=== PATIENT | female | born 1990 | race African-American/Black ===

== ENCOUNTER 2025-03-09 11:03 | Emergency (ER) | payer OTHER ==
[~2025-03-09] VITALS: Ht 170.2 cm; Wt 81.2 kg
[2025-03-09] MEDS ORDERED: PRENTAB45 PO (11:12)
[2025-03-09 12:02] LABS: BASO # 0.0 10^3/uL (0.0-0.2); BASO % 0.4 % (0.0-1.0); EOS # 0.2 10^3/uL (0.0-0.5); EOS % 2.8 % (0.0-3.0); LYMPH # 1.8 10^3/uL (1.5-5.0); LYMPH % 26.5 % (24.0-44.0); MONO # 0.4 10^3/uL (0.0-0.8); MONO % 6.1 % (2.0-8.0); NEUTROPHILS # 4.4 10^3/uL (1.5-8.5); NEUTROPHILS % 63.9 % (36.0-66.0); PLATELET COUNT, AUTOMATED 396 10^3/uL (150-450)
[2025-03-09 12:33] LABS: CALCIUM LEVEL 8.5 MG/DL (8.5-10.1); CARBON DIOXIDE LEVEL 26 MMOL/L (20-31); CHLORIDE LEVEL 106 MMOL/L (98-107); CREATININE FOR GFR 0.63 MG/DL (0.55-1.30); GLOMERULAR FILTRATION RATE > 90.0 (>60); POTASSIUM SERUM 3.9 MMOL/L (3.5-5.1); SODIUM LEVEL 140 MMOL/L (136-145)
[2025-03-09 13:34] LABS: HCG, SERUM QUANTITATIVE 216254.6 MIU/ML (<4.2)
[2025-03-09] MEDS: MECLIZINE 25 MG TABLET PO ONE (14:44)
[2025-03-09 15:22] LABS: KETONE, URINE AUTO RFX TRACE mg/dL (NEGATIVE); MUCUS, URINE RFX MODERATE (NEGATIVE); NITRITE, URINE AUTO RFX NEGATIVE (NEGATIVE); RBC, URINE AUTO RFX 3 /HPF (0-3); SQUAM EPITHELIAL CELL UR AURFX 2 /HPF (0-6); WBC, URINE AUTO RFX 1 /HPF (0-3)
[2025-03-09 15:30] LABS: LEUKOCYTE ESTERASE UR AUTO RFX TRACE (NEGATIVE)
[2025-03-09 16:59] VITALS: BP 127/72; TEMP 98.4; O2SAT 100
[2025-03-09] MEDS ORDERED: CEPH500C PO (17:06)
== END 2025-03-09 17:50 | disposition home or self-care (01) ==
LOC: M ED 11:03
DX: O23.41 Unspecified infection of urinary tract in pregnancy, first trimester (principal); O99.891 Other specified diseases and conditions complicating pregnancy; H81.13 Benign paroxysmal vertigo, bilateral; O34.81 Maternal care for other abnormalities of pelvic organs, first trimester; N83.11 Corpus luteum cyst of right ovary; D25.9 Leiomyoma of uterus, unspecified; Z79.2 Long term (current) use of antibiotics; Z79.899 Other long term (current) drug therapy; Z3A.01 Less than 8 weeks gestation of pregnancy

== ENCOUNTER → 2025-03-27 | Outpatient (CLI) | payer OTHER ==
[~2025-03-27] MED LIST: CEPH500C PO; PRENTAB45 PO
[2025-03-27 13:49] LABS: PLATELET COUNT, AUTOMATED 331 10^3/uL (150-450)
[2025-03-27 14:23] LABS: HIV 1&2 SCREEN NEGATIVE (NEGATIVE)
[2025-03-27 14:31] LABS: HEPATITIS C VIRUS ABY INDEX 0.02 INDEX (<0.8)
[2025-03-27 15:16] LABS: Trichomonas vaginalis (AMP) NOT DETECTED (NEGATIVE)
[2025-03-27 15:40] LABS: GC DNA AMPLIFICATION NEGATIVE (NEGATIVE)
== END ==
LOC: M PLALAB 11:09
PROVIDERS: ATTEND Advanced Practice Midwife
DX: O09.521 Supervision of elderly multigravida, first trimester (principal)

== ENCOUNTER → 2025-05-31 | Outpatient (CLI) | payer SELFPAY | LOC: M WHC 09:50 | PROVIDERS: ATTEND Advanced Practice Midwife | DX: Z36.89 Encounter for other specified antenatal screening (principal); Z3A.19 19 weeks gestation of pregnancy ==